=== PATIENT | female | born 1990 ===

== ENCOUNTER 2017-06-13 18:33 | Emergency (ER) | payer MEDICAID ==
[2017-06-13 20:00] VITALS: BMI 27.4
[2017-06-13] MEDS ORDERED: Lactated Ringer's 1,000 ML IV SCH (20:30)
[2017-06-13 21:00] LABS: HEMOGLOBIN 10.8 g/dL (12.0-16.0); MEAN CELL VOLUME 91.5 fl (81.0-99.0); MEAN CORPUSCULAR HEMOGLOBIN 29.5 pg (27.0-31.0); MEAN CORPUSCULAR HGB CONC 32.2 g/dL (33.0-37.0); RBC 3.67 Mil/uL (3.80-5.20); RED CELL DISTRIBUTION WIDTH 15.1 % (11.5-14.5); WHITE BLOOD COUNT 9.8 K/uL (4.8-10.8)
[2017-06-13 21:04] LABS: SQUAMOUS EPITHIAL 1 /hpf (0-5); URINE BACTERIA RARE (<OCC); URINE BILIRUBIN NEGATIVE (NEGATIVE); URINE BLOOD NEGATIVE (NEGATIVE); URINE CLARITY SLIGHTY-CLOUDY (Clear); URINE COLOR YELLOW (YELLOW); URINE GLUCOSE (UA) NEG (Normal); URINE LEUKOCYTE ESTERASE TRACE Leu/uL (Negative); URINE PROTEIN NEGATIVE (NEGATIVE); URINE UROBILINOGEN 0.2-1.0 mg/dL (0.2-1.0)
[2017-06-13 21:12] LABS: ALBUMIN 3.9 g/dL (3.5-5.0); ALT/SGPT 21 U/L (9-52); AST/SGOT 22 U/L (14-36); BLOOD UREA NITROGEN 7 mg/dl (7-17); CALCIUM 8.9 mg/dL (8.4-10.2); GFR AFRICAN-AMERICAN > 60; GFR NON-AFRICAN AMERICAN > 60
[2017-06-13 21:19] LABS: BARBITURATES, UR NEGATIVE (NEGATIVE); BENZODIAZEPINES, UR NEGATIVE (NEGATIVE); OPIATES, UR NEGATIVE (NEGATIVE); PHENCYCLIDINE, UR NEGATIVE (NEGATIVE)
--- NOTE | 2017-06-13 22:20 | US ---
EXAM: US Uterus, Limited EXAM DATE/TIME: 06/13/2017 8:14 PM CLINICAL HISTORY: 26 years old, female; Pain; complicated by abdominal or pelvic pain; Lower; Second trimester; Gestational age or lmp: 11/17/2016; ; Additional info: Estimated weight, estimated gestationa age TECHNIQUE: Real-time ultrasound of the maternal uterus (limited) with image documentation. COMPARISON: There are no prior studies for comparison. FINDINGS: Fetus: The there is a single living intrauterine gestation in cephalic presentation Heart rate: There is a heart rate of 161 beats per minute. Placenta: Placenta is anterior. Amniotic fluid: Amnionic fluid index measures 16.05 cm. Anatomy: Formal anatomic survey was not performed. BIOMETRICS BPD: 7.19 cm, 20 weeks 6 days HC: 24.56 cm, 26 weeks 5 days AC: 23.05 cm, 27 weeks 3 days FL: 5.43 cm, 28 weeks 5 days Gestational age: 27 weeks 4 days EFW: 1140 g (less than 3%) MARY: 09/08/17 MATERNAL: Cervix: Cervix measures approximately 4.6 cm. Cervix is closed IMPRESSION: 27 week 4 day single cephalic fetus, estimated weight 1140 g; estimated date of delivery 09/08/17
[2017-06-14 04:40] VITALS: BP 92/60; PULSE 96
== END 2017-06-13 23:30 | disposition home or self-care (01) ==
LOC: H.EROB2 18:33
DX: O47.02 False labor before 37 completed weeks of gestation, second trimester (principal); O26.92 Pregnancy related conditions, unspecified, second trimester; M54.9 Dorsalgia, unspecified; Z87.59 Personal history of other complications of pregnancy, childbirth and the puerperium; Z3A.29 29 weeks gestation of pregnancy